=== PATIENT | female | born 1955 | race Caucasian/White ===

== ENCOUNTER 2018-10-05 06:30 | Day surgery (SDC) | payer OTHER ==
[~2018-10-05 06:30] MED LIST: GABAPENT PO; HYZAAR 100-251 EACH PO; METROPOLOL PO; TRENTAL PO; ZYRTEC10 M3 PO
== END 2018-10-05 14:20 | disposition home or self-care (01) ==
LOC: CIR.AMB 06:30
DX: M65.331 Trigger finger, right middle finger (principal); M24.541 Contracture, right hand